=== PATIENT | female | born 1985 | race Caucasian/White ===

== ENCOUNTER 2020-09-08 18:37 | Emergency (ER) | payer SELFPAY ==
[2020-09-08 18:51] VITALS: BP 137/92; PULSE 86; RESP 14; TEMP 37.3; O2SAT 99; BMI 36.6
--- NOTE | 2020-09-08 18:57 | XRR_ITS ---
PROCEDURE INFORMATION: Exam: XR Chest, 1 View Exam date and time: 09/08/2020 7:04 PM Age: 34 years old Clinical indication: Chest pain; Additional info: Cp TECHNIQUE: Imaging protocol: XR of the chest Views: 1 view. Total images: 1 COMPARISON: No relevant prior studies available. FINDINGS: Lungs: Unremarkable. No consolidation. Pleural space: Unremarkable. No pleural effusion. No pneumothorax. Heart/Mediastinum: Unremarkable. No cardiomegaly. Bones/joints: Unremarkable. XR/XR chest 1V portable [id number] IMPRESSION: No acute findings.
--- NOTE | 2020-09-08 18:57 | ECG_ITS ---
[facility] Test Date: 2020-09-08 Pat Name: Irene Sim Department: Room: Gender: Female [employer]oy[employer]ze Operator: ENOCH WHITNEYB: 1985 Requested By: John Li Order Number: [id number] Jasmina MD: Hailey Mancini M.D. Measurements Intervals [place] Rate: 81 P: 43 MS: 139 QRS: 28 QRSD: 89 T: 30 QT: 328 QTc: 383 Interpretive Statements SINUS RHYTHM WARNING: DATA QUALITY MAY AFFECT INTERPRETATION No previous ECG available for comparison Electronically Signed On 09-09-2020 17:25:01 FILTER CLEANER by Hailey Mancini M.D. [id number]
--- NOTE | 2020-09-08 19:26 | ED_ITS ---
HPI - Chest Pain General: Chief Complaint: Chest Pain Stated Complaint: CHEST PAINS, ELEVATED HEART RATE Time Seen by Provider: 09/08/20 19:18 History of Present Illness: HPI narrative: The patient is a 34-year-old female who comes to the ER complaining of chest pain and tachycardia. She says at home she was walking around and felt left-sided chest pain similar to when she had Covid in May. She says it hurts with movement and deep breaths and coughing . She is 34 and has no medical problems. In the ER her pain is a 0. MD complaint: chest pain Onset: during exertion Pain radiation: none Quality: sharp Relieving factors: rest Exacerbating factors: exertion and inspiration Associated symptoms: Deny abdominal pain, dyspnea or palpitations Treatment prior to arrival: none Review of Systems General: Reports: 10 or more systems reviewed and unremarkable except in HPI and below Const: Denies: fatigue Eyes: Denies: change in vision, blurry vision or eye redness ENMT: Denies: throat pain, swelling of lips/tongue, ear or mastoid pain or nasal congestion Card: Denies: chest pain, palpitations, irregular heart rhythm, edema, dyspnea on exertion or orthopnea Resp: Denies: dyspnea, productive cough or non-productive cough GI: Denies: abdominal pain, diarrhea or GI cramping : Denies: flank pain, difficulty voiding, urinary frequency or urinary urgency Musc: Denies: neck pain, back pain, extremity pain, joint pain, joint redness, limited range of motion or muscle weakness Skin/Breast: Denies: rash, pruritus, erythema, skin pain or skin tenderness Neuro: Denies: headache(s), numbness in extremities, weakness in extremities, sensory changes, difficulty walking, dizziness, confusion or Slurred speech present Psych: Denies: anxiety or depression Endo: Denies: polyuria All/Imm: Denies: urticaria, throat swelling or tongue swelling Physical Exam Const: COMMON NORMALS: no acute distress, average body habitus, patient oriented x3, no limitations, healthy appearing, alert and well nourished GENERAL APPEARANCE: cooperative, comfortable, well kempt and well developed ORIENTATION/CONSCIOUSNESS: Yes awake, Yes oriented to person, Yes oriented to place and Yes oriented to time HENMT: COMMON NORMALS: normocephalic, external ears normal and Normal external nose present HEAD & SCALP: normal to inspection and normocephalic NOSE: Normal external nose present EXTERNAL EAR: Yes external ears normal MOUTH: Normal oral and palatal mucosa present THROAT: posterior oropharynx normal Eye: COMMON NORMALS: Equal, round and reactive pupils present and EOMs intact bilaterally GENERAL EYE: appearance normal, both eyes and all related structures PUPIL: Yes Equal, round and reactive pupils present Neck/C-Spine: COMMON NORMALS: full ROM, no lymphadenopathy, no meningeal signs and no JVD GENERAL: Yes normal visual inspection Lymph: LYMPHATIC: no lymphadenopathy noted Chest: COMMONS NORMALS: normal inspection of the chest and normal palpation of entire chest wall Resp: COMMON NORMALS: normal respiratory effort, No retractions, No use of accessory muscles, clear to auscultation bilaterally and percussion normal EFFORT & INSPECTION: Yes able to speak in complete sentences AUSCULTATION: clear to auscultation bilaterally PERCUSSION: percussion normal Cardio: COMMON NORMALS: no JVD, regular rate, regular rhythm, S1 normal heart sound present, S2 normal heart sound present and Peripheral pulses 2+ throughout RATE: regular rate RHYTHM: regular rhythm HEART SOUNDS: S1 normal heart sound present and S2 normal heart sound present PERIPHERAL PULSES: Peripheral pulses 2+ throughout GI: COMMON NORMALS: Normal to inspection, nondistended, normoactive bowel sounds present, Soft to palpation, non-tender and no masses INSPECTION: Yes normal to inspection PALPATION: Yes Soft to palpation : COMMON NORMALS: Yes no CVA tenderness BLADDER/KIDNEY EXAM: Yes no CVA tenderness Back/Pelvis: COMMON NORMALS: no CVA tenderness, thoracic and lumbar spine normal to inspection, no thoracic nor lumbar tenderness and thoraco-lumbar ROM normal Extremity: COMMON NORMALS: normal to inspection, full ROM, capillary refill normal, no joint enlargement and no pedal edema GENERAL: Yes normal exam except as noted Neuro: COMMON NORMALS: patient oriented x3, CN's II-XII intact bilaterally, moves all extremities, no focal motor deficits, no sensory deficits noted and gait normal SENSORIUM/ORIENTATION: Yes alert, Yes oriented to person, Yes oriented to place and Yes oriented to time MENINGEAL SIGNS: Yes no meningeal signs Psych: COMMON NORMALS: mental status grossly normal, Normal thought process present, cooperative, normal affect and speech normal APPEARANCE: Yes well kempt ATTITUDE: Yes calm SPEECH: Yes normal speech THOUGHT PROCESS: Normal thought process present Skin: COMMON NORMALS: no rashes or lesions noted GENERAL SKIN EXAM: no rashes or lesions noted Course Vital Signs: Vital signs: Vital Signs Temperature 99.1 F 09/08/20 18:51 Pulse Rate 83 09/08/20 23:07 Respiratory Rate 15 09/08/20 23:07 Blood Pressure 123/83 09/08/20 23:07 Pulse Oximetry 98 09/08/20 23:07 MDM - Chest Pain Lab Data: Labs: Lab Results 09/08/20 09/08/20 09/08/20 Range/Units 19:32 19:32 19:32 WBC 10.6 H (4.0-10.0) 10^3/ uL RBC 4.53 (4.1-5.3) 10^6/u L Hgb 13.3 (11.5-15.3) g/dL Hct 41.8 (37.0-47.0) % MCV 92.3 (81-99) fL MCH 29.4 (28.0-34.0) pg MCHC 31.8 (30.0-36.0) g/dL RDW 13.1 (12.1-15.1) % Plt Count 307 (130-400) 10^3/c mm MPV 10.5 H (7.4-10.4) fL Neut % (Auto) 81.0 % Lymph % (Auto) 12.4 % Mcduffie % (Auto) 4.0 % Eos % (Auto) 1.8 % Baso % (Auto) 0.5 % Neut # (Auto) 8.57 H (1.8-7.7) 10^3/u L Lymph # (Auto) 1.3 (0.8-4.8) 10^3/u L Mcduffie # (Auto) 0.4 (0.2-0.9) 10^3/u L Eos # (Auto) 0.2 (0.0-0.8) 10^3/u L Baso # (Auto) 0.1 (0.0-0.1) 10^3/u L Nucleated RBC % (a uto) 0 % Nucleated RBCs # 0.0 /100WBC D-Dimer <= 0.27 (0-0.59) ug/mIFE U Sodium 139 (136-145) mmol/L Potassium 4.4 (3.5-5.1) mmol/L Chloride 103 (98-107) mmol/L Carbon Dioxide 27 (22-29) mmol/L Anion Gap 13.4 (5-19) BUN 9 (6-20) mg/dL Creatinine 0.6 (0.5-0.9) mg/dL GFR Calculation 113.8 (90-130) mL/min Glucose 106 (65-115) mg/dL Calculated Osmolal ity 287 (285-295) mOsm/k g Calcium 9.8 (8.5-10.5) mg/dL Total Bilirubin 0.3 (0.15-1.2) mg/dL AST 19 (0-32) U/L ALT 15 (0-33) U/L Alkaline Phosphata se 77 (35-105) IU/L Troponin T Baselin e (0-10) ng/L Troponin T 120 Min elim ira (0-10) ng/L Delta Troponin T (0-10) ABS# Total Protein 7.6 (6.6-8.7) g/dL Albumin 4.6 (3.5-5.2) g/dL Globulin 3.0 (1.3-4.6) g/dL 09/08/20 09/08/20 Range/Units 19:32 21:32 WBC (4.0-10.0) 10^3/ uL RBC (4.1-5.3) 10^6/u L Hgb (11.5-15.3) g/dL Hct (37.0-47.0) % MCV (81-99) fL MCH (28.0-34.0) pg MCHC (30.0-36.0) g/dL RDW (12.1-15.1) % Plt Count (130-400) 10^3/c mm MPV (7.4-10.4) fL Neut % (Auto) % Lymph % (Auto) % [place]duff[place] % (Auto) % Eos % (Auto) % Baso % (Auto) % Neut # (Auto) (1.8-7.7) 10^3/u L Lymph # (Auto) (0.8-4.8) 10^3/u L Mcduffie # (Auto) (0.2-0.9) 10^3/u L Eos # (Auto) (0.0-0.8) 10^3/u L Baso # (Auto) (0.0-0.1) 10^3/u L Nucleated RBC % (a uto) % Nucleated RBCs # /100WBC D-Dimer (0-0.59) ug/mIFE U Sodium (136-145) mmol/L Potassium (3.5-5.1) mmol/L Chloride (98-107) mmol/L Carbon Dioxide (22-29) mmol/L Anion Gap (5-19) BUN (6-20) mg/dL Creatinine (0.5-0.9) mg/dL GFR Calculation (90-130) mL/min Glucose (65-115) mg/dL Calculated Osmolal ity (285-295) mOsm/k g Calcium (8.5-10.5) mg/dL Total Bilirubin (0.15-1.2) mg/dL AST (0-32) U/L ALT (0-33) U/L Alkaline Phosphata se (35-105) IU/L Troponin T Baselin e 6 (0-10) ng/L Troponin T 120 Min elim ira 6.00 (0-10) ng/L Delta Troponin T 0 (0-10) ABS# Total Protein (6.6-8.7) g/dL Albumin (3.5-5.2) g/dL Globulin (1.3-4.6) g/dL Discharge Plan Discharge Patient Disposition: Home Clinical Impression: Atypical chest pain Condition: Stable Discharge Orders: Discharge ED (Routine); Ordered 09/08/20 Ordered By: Castillo Rosenberg Discharge Diet: Advance as tolerated Discharge Activity: Resume usual activity Patient Instructions: Chest Pain (ED) Activity Restrictions/Additional Instructions: You are having chest pain that is of unclear cause but not likely your heart. Please follow-up with your primary care physician in 3 to 5 days to monitor impr ovement of symptoms and to get a referral to cardiology at that time.. Return to the ER with worsening symptoms. Take ibuprofen at home for this pain. Coding Level of Care Code ED Riding Double for Lawanda Fwd Exam Comprehensive
[2020-09-08 19:39] LABS: Basophils # 0.1 10^3/uL (0.0-0.1); Basophils % 0.5 %; Eosinophils # 0.2 10^3/uL (0.0-0.8); Eosinophils % 1.8 %; Hematocrit 41.8 % (37.0-47.0); Hemoglobin 13.3 g/dL (11.5-15.3); Lymphocytes # 1.3 10^3/uL (0.8-4.8); Lymphocytes % 12.4 %; Mean Corpuscular HGB Conc 31.8 g/dL (30.0-36.0); Mean Corpuscular Hemoglobin 29.4 pg (28.0-34.0); Mean Corpuscular Volume 92.3 fL (81-99); Mean Platelet Volume 10.5 fL (7.4-10.4); Monocytes # 0.4 10^3/uL (0.2-0.9); Neutrophils # 8.57 10^3/uL (1.8-7.7); Nucleated Red Blood Cells % 0 %; Platelet Count 307 10^3/cmm (130-400); Red Blood Count 4.53 10^6/uL (4.1-5.3); Red Cell Distribution Width 13.1 % (12.1-15.1); White Blood Count 10.6 10^3/uL (4.0-10.0)
[2020-09-08 19:52] LABS: D Dimer <= 0.27 ug/mIFEU (0-0.59)
[2020-09-08 19:53] VITALS: BP 125/78; PULSE 81; RESP 26; O2SAT 97
[2020-09-08 19:54] LABS: Alanine Aminotransferase 15 U/L (0-33); Albumin Level 4.6 g/dL (3.5-5.2); Alkaline Phosphatase 77 IU/L (35-105); Blood Urea Nitrogen 9 mg/dL (6-20); Calcium 9.8 mg/dL (8.5-10.5); Carbon Dioxide 27 mmol/L (22-29); Chloride 103 mmol/L (98-107); Glomerular Filtration Rate 113.8 mL/min (90-130); Glucose 106 mg/dL (65-115); Osmolality Calculated 287 mOsm/kg (285-295); Sodium 139 mmol/L (136-145); Total Bilirubin 0.3 mg/dL (0.15-1.2); Total Protein 7.6 g/dL (6.6-8.7)
[2020-09-08 19:56] LABS: Troponin(5th) Baseline 6 ng/L (0-10)
[2020-09-08 20:24] LABS: Anion Gap 13.4 (5-19); Aspartate Amino Transferase 19 U/L (0-32); Potassium 4.4 mmol/L (3.5-5.1)
[2020-09-08 20:43] VITALS: BP 118/76; PULSE 81; RESP 16; O2SAT 97
--- NOTE | 2020-09-08 20:57 | ECG_ITS ---
[facility] Test Date: 2020-09-08 Pat Name: Irene Sim Department: Room: Gender: Female [employer] Advisor: : 1985 Requested By: John Li Order Number: [id number] Jasmina MD: Hailey Mancini M.D. Measurements Intervals [place] Rate: 61 P: 18 DC: 155 QRS: 16 QRSD: 86 T: 13 QT: 359 QTc: 363 Interpretive Statements SINUS RHYTHM WITH SINUS ARRHYTHMIA Compared to ECG 09/08/2020 18:49:13 No significant changes Electronically Signed On 09-09-2020 17:32:03 MEDICAL GRADE SHOEMAKER by Hailey Mancini M.D. [id number]
[2020-09-08 21:50] VITALS: BP 119/76; PULSE 70; RESP 14; O2SAT 97
[2020-09-08 22:01] LABS: Troponin 5 2HR Delta 0 ABS# (0-10)
[2020-09-08 23:07] VITALS: BP 123/83; PULSE 83; RESP 15; O2SAT 98
== END 2020-09-08 23:07 | disposition home or self-care (01) ==
PROVIDERS: Emergency Medicine; Emergency Provider Family Medicine
DX: R07.89 Other chest pain (principal)
CPT/HCPCS: 12345; 71045; 80053; 84484; 85025; 85378; 93005; 99283